=== PATIENT | male | born 1960 | race Caucasian/White ===

== ENCOUNTER 2017-03-23 16:46 | Emergency (ER) | payer MEDICAID ==
[~2017-03-23] VITALS: Ht 175.3 cm; Wt 82.0 kg
[~2017-03-23 16:46] MED LIST: ALPR-475 PO; CLON0.2T; ESCI10TA10; ESCI10TA10 PO; ESCI20TA10 PO; GABA300C10 PO; LORA-446 PO; METO25TA91 PO; QUET200T4 PO; QUET50TA5 PO; TRAZ100T15 PO; TRAZ50TA18 PO
[2017-03-23] MEDS ORDERED: SODIUM CHLORIDE 0.9% 1,000 ML IV ONE (16:59)
[2017-03-23] MEDS ORDERED: THIAMINE 100 MG in SODIUM CHLORIDE 0.9% 50 ML IVPB ONE (17:00)
[2017-03-23] MEDS ORDERED: SODIUM CHLORIDE FLUSH 10ML SYR IVF ONE (17:00)
[2017-03-23] MEDS ORDERED: SODIUM CHLORIDE 0.9% 1,000ML IVBOLUS ONE (17:00)
[2017-03-23] MEDS ORDERED: ONDANSETRON 2MG/ML, 2ML IVPush ONE (17:00)
[2017-03-23] MEDS ORDERED: LORazepam 2 MG/ML, 1ML ONE ×2 (17:00→18:29)
[2017-03-23 17:13] LABS: BASOPHILS # (AUTO) 0.02 x10^3/uL (0-0.1); BASOPHILS % (AUTO) 0 % (0-1); EOSINOPHILS % (AUTO) 0 % (1-7); LYMPHOCYTES # (AUTO) 2.25 x10^3/uL (1-3.4); LYMPHOCYTES % (AUTO) 17 % (22-44); MD NO; MEAN CORPUSCULAR HEMOGLOBIN 29.3 pg (27.5-34.5); MEAN CORPUSCULAR HGB CONC 33.3 g/dL (33.2-36.2); MEAN PLATELET VOLUME 6.7 fL (7.4-10.4); MONOCYTES # (AUTO) 0.51 x10^3/uL (0.2-0.8); MONOCYTES % (AUTO) 4 % (2-9); NEUTROPHILS % (AUTO) 79 % (42-75); PLATELET COUNT 303 x10^3/uL (130-400); RED BLOOD COUNT 6.06 x10^6/uL (4.38-5.82); RED CELL DISTRIBUTION WIDTH 13.6 % (9.4-14.8)
[2017-03-23] MEDS: LORazepam 2 MG/ML, 1ML IVPush PRN ×2 (17:24→18:33)
[2017-03-23 17:28] LABS: ALANINE AMINOTRANSFERASE 32 U/L (12-78); ALBUMIN 4.3 g/dL (3.4-5.0); ANION GAP 16 mmol/L (5-15); CHLORIDE 103 mmol/L (98-107); CREATININE 1.08 mg/dL (0.7-1.3)
[2017-03-23 17:30] LABS: ALKALINE PHOSPHATASE 80 U/L (45-117); BILIRUBIN,TOTAL 0.7 mg/dL (0.2-1.0); TOTAL PROTEIN 8.8 g/dL (6.4-8.2)
[2017-03-23] MEDS ORDERED: PLEASE ENTER HEIGHT AND WEIGHT MC SCH (17:30)
[2017-03-23] MEDS ORDERED: ONDANSETRON 2MG/ML, 2ML ONE (17:33)
[2017-03-23 17:44] VITALS: BP 151/83
== END 2017-03-23 19:18 | disposition home or self-care (01) ==
LOC: ED 19:00
DX: F10.229 Alcohol dependence with intoxication, unspecified (principal); I10 Essential (primary) hypertension; Y90.9 Presence of alcohol in blood, level not specified
CPT/HCPCS: 36415; 80053; 83690; 85025; 96361; 96365; 96375; 99284; J2060; J2405; J3411; J7030

== ENCOUNTER 2017-03-26 15:15 | Emergency (ER) | payer MEDICAID ==
[~2017-03-26] VITALS: Ht 175.3 cm; Wt 81.8 kg
[2017-03-26] MEDS ORDERED: TRAZ100T15 PO (15:26)
[2017-03-26] MEDS ORDERED: ONDANSETRON 2MG/ML, 2ML ONE (15:48)
[2017-03-26] MEDS ORDERED: LORazepam 2 MG/ML, 1ML ONE (15:48)
[2017-03-26] MEDS ORDERED: SODIUM CHLORIDE 0.9% 1,000ML IVBOLUS ONE (16:00)
[2017-03-26] MEDS ORDERED: ONDANSETRON 2MG/ML, 2ML IVPush ONE (16:00)
[2017-03-26] MEDS ORDERED: LORazepam 2 MG/ML, 1ML IVPush ONE (16:00)
[2017-03-26] MEDS ORDERED: DIAZEPAM 5 MG/ML, 10ML VIAL IV ONE (16:30)
[2017-03-26 17:16] VITALS: BP 162/95
== END 2017-03-26 17:54 | disposition home or self-care (01) ==
LOC: ED 17:40
DX: F10.220 Alcohol dependence with intoxication, uncomplicated (principal); F10.239 Alcohol dependence with withdrawal, unspecified; I10 Essential (primary) hypertension
CPT/HCPCS: 96361; 96374; 96375; 99284; J2060; J2405; J3360; J7030

== ENCOUNTER 2017-04-02 05:37 | Emergency (ER) | payer MEDICAID ==
[~2017-04-02] VITALS: Ht 175.3 cm; Wt 82.0 kg
[2017-04-02] MEDS ORDERED: LORazepam 1MG TABLET ONE ×2 (05:57→09:31)
[2017-04-02] MEDS ORDERED: ONDANSETRON ODT 4 MG PO ONE (06:00)
[2017-04-02] MEDS ORDERED: LORazepam 1MG TABLET PO ONE ×2 (06:00→09:30)
[2017-04-02] MEDS ORDERED: ONDANSETRON ODT 4 MG ONE (06:03)
[2017-04-02 06:12] LABS: BASOPHILS # (AUTO) 0.01 x10^3/uL (0-0.1); BASOPHILS % (AUTO) 0 % (0-1); EOSINOPHILS % (AUTO) 0 % (1-7); LYMPHOCYTES # (AUTO) 1.37 x10^3/uL (1-3.4); LYMPHOCYTES % (AUTO) 17 % (22-44); MD NO; MEAN CORPUSCULAR HEMOGLOBIN 29.7 pg (27.5-34.5); MEAN CORPUSCULAR HGB CONC 34.1 g/dL (33.2-36.2); MEAN CORPUSCULAR VOLUME 87.2 fL (81-97); MEAN PLATELET VOLUME 6.4 fL (7.4-10.4); MONOCYTES # (AUTO) 0.58 x10^3/uL (0.2-0.8); MONOCYTES % (AUTO) 7 % (2-9); NEUTROPHILS # (AUTO) 6.07 x10^3/uL (1.8-6.8); NEUTROPHILS % (AUTO) 76 % (42-75); PLATELET COUNT 194 x10^3/uL (130-400); RED BLOOD COUNT 5.75 x10^6/uL (4.38-5.82); RED CELL DISTRIBUTION WIDTH 13.5 % (9.4-14.8)
[2017-04-02 06:24] LABS: ALANINE AMINOTRANSFERASE 59 U/L (12-78); ANION GAP 18 mmol/L (5-15); CALCIUM 8.2 mg/dL (8.5-10.1); CHLORIDE 93 mmol/L (98-107); CREATININE 1.05 mg/dL (0.7-1.3)
[2017-04-02 06:29] LABS: ALKALINE PHOSPHATASE 86 U/L (45-117); TOTAL PROTEIN 8.5 g/dL (6.4-8.2)
[2017-04-02] MEDS ORDERED: CHLORDIAZEPOXIDE 25 MG CAPSULE ONE (08:06)
[2017-04-02] MEDS ORDERED: CHLORDIAZEPOXIDE 25 MG CAPSULE PO ONE (08:30)
[2017-04-02 09:32] VITALS: BP 132/90
== END 2017-04-02 09:49 | disposition home or self-care (01) ==
LOC: ED 05:42
DX: F10.229 Alcohol dependence with intoxication, unspecified (principal); I10 Essential (primary) hypertension
CPT/HCPCS: 36415; 80053; 80307; 85025; 99284; Q0162

== ENCOUNTER 2017-04-04 16:53 | Inpatient (IN) | payer MEDICAID ==
[~2017-04-04] VITALS: Ht 175.3 cm; Wt 80.0 kg
[2017-04-04] MEDS ORDERED: SODIUM CHLORIDE FLUSH 10ML SYR IVF ONE (17:00)
[2017-04-04] MEDS ORDERED: THIAMINE 100 MG in SODIUM CHLORIDE 0.9% 50 ML IVPB ONE (17:00)
[2017-04-04] MEDS ORDERED: SODIUM CHLORIDE 0.9% 1,000 ML IV ONE ×2 (17:00→18:27)
[2017-04-04] MEDS ORDERED: ONDANSETRON 2MG/ML, 2ML IVPush ONE (17:00)
[2017-04-04] MEDS ORDERED: SODIUM CHLORIDE 0.9% 1,000ML IVBOLUS ONE (17:00)
[2017-04-04] MEDS ORDERED: LORazepam 2 MG/ML, 1ML ONE ×2 (17:27→19:25)
[2017-04-04] MEDS ORDERED: ONDANSETRON 2MG/ML, 2ML ONE (17:27)
[2017-04-04] MEDS: LORazepam 2 MG/ML, 1ML IVPush PRN ×3 (17:37→19:23)
[2017-04-04 17:57] LABS: BASOPHILS % (AUTO) 0 % (0-1); EOSINOPHILS % (AUTO) 0 % (1-7); LYMPHOCYTES % (AUTO) 7 % (22-44); MD NO; MEAN CORPUSCULAR HEMOGLOBIN 29.5 pg (27.5-34.5); MEAN CORPUSCULAR HGB CONC 33.7 g/dL (33.2-36.2); MEAN CORPUSCULAR VOLUME 87.4 fL (81-97); MEAN PLATELET VOLUME 6.4 fL (7.4-10.4); MONOCYTES # (AUTO) 0.71 x10^3/uL (0.2-0.8); MONOCYTES % (AUTO) 7 % (2-9); NEUTROPHILS # (AUTO) 8.58 x10^3/uL (1.8-6.8); NEUTROPHILS % (AUTO) 86 % (42-75); PLATELET COUNT 213 x10^3/uL (130-400); RED BLOOD COUNT 5.24 x10^6/uL (4.38-5.82); RED CELL DISTRIBUTION WIDTH 13.4 % (9.4-14.8)
[2017-04-04] MEDS ORDERED: THIAMINE 100MG TABLET PO ONE (18:00)
[2017-04-04 18:06] LABS: ALANINE AMINOTRANSFERASE 118 U/L (12-78); ALBUMIN 3.9 g/dL (3.4-5.0); ANION GAP 14 mmol/L (5-15); CHLORIDE 90 mmol/L (98-107); CREATININE 1.04 mg/dL (0.7-1.3)
[2017-04-04 18:08] LABS: ALKALINE PHOSPHATASE 82 U/L (45-117); BILIRUBIN,TOTAL 1.2 mg/dL (0.2-1.0); TOTAL PROTEIN 7.8 g/dL (6.4-8.2)
[2017-04-04] MEDS ORDERED: SODIUM CHLORIDE FLUSH 10ML SYR IVF PRN (18:30)
[2017-04-04] MEDS ORDERED: POTASSIUM CHLORIDE 20 MEQ, MAGNESIUM SULFATE 2 GM, MVI ADULT 10 ML, FOLIC ACID 1 MG in ... IV SCH (19:18)
[2017-04-04] MEDS ORDERED: LABETALOL 5MG/ML, 20ML IVPush PRN (19:30)
[2017-04-04] MEDS ORDERED: ONDANSETRON ODT 4 MG PO PRN (19:30)
[2017-04-04] MEDS ORDERED: LORazepam 1MG TABLET PO PRN (19:30)
[2017-04-04] MEDS ORDERED: ONDANSETRON 2MG/ML, 2ML IVPush PRN (19:30)
[2017-04-04] MEDS ORDERED: morphine SULFATE 10 MG/ML, 1ML IVPush PRN (19:30)
[2017-04-04] MEDS ORDERED: TEMAZEPAM 15 MG CAPSULE PO PRN (19:30)
[2017-04-04] MEDS ORDERED: ACETAMINOPHEN 325 MG TABLET PO PRN (19:30)
[2017-04-04 20:00] VITALS: BP 127/79
[2017-04-04] MEDS: TRAZODONE 100MG TABLET PO SCH (20:14)
[2017-04-04] MEDS: QUETIAPINE 25MG TABLET PO SCH (20:19)
[2017-04-04] MEDS: THIAMINE 100MG TABLET PO SCH (20:19)
[2017-04-04] MEDS ORDERED: QUETIAPINE FUMARATE 50 MG PO SCH (21:00)
[2017-04-04] MEDS: FAMOTIDINE 20 MG/2 ML IVPush SCH (21:36)
[2017-04-04] MEDS: HEPARIN 5,000 UNITS/ML, 1ML SQ SCH (21:36)
[2017-04-05] MEDS: LORazepam 2 MG/ML, 1ML IVPush PRN ×2 (00:12→05:28)
[2017-04-05 03:18] VITALS: BP 137/86
[2017-04-05] MEDS: HEPARIN 5,000 UNITS/ML, 1ML SQ SCH (05:27)
[2017-04-05 05:47] LABS: CHLORIDE 99 mmol/L (98-107)
[2017-04-05 05:59] LABS: ANION GAP 12 mmol/L (5-15); CALCIUM 7.5 mg/dL (8.5-10.1)
[2017-04-05 06:00] LABS: ALANINE AMINOTRANSFERASE 111 U/L (12-78); ALBUMIN 3.2 g/dL (3.4-5.0); ALKALINE PHOSPHATASE 66 U/L (45-117); BILIRUBIN,TOTAL 1.3 mg/dL (0.2-1.0); CHOL/HDL RATIO 3.4; CHOLESTEROL, TOTAL 238 mg/dL (140-239); HDL CHOL % 30 % (26-37); HDL CHOLESTEROL (DIRECT) 71 mg/dL (40-60); LDL CHOLESTEROL,CALCULATED 146 mg/dL (54-169); LDL/HDL RATIO 2.1 (0.5-3.0); TOTAL PROTEIN 6.6 g/dL (6.4-8.2); TRIGLYCERIDES 107 mg/dL (50-200); VLDL CHOLESTEROL 21 mg/dL (0-25)
[2017-04-05 06:01] LABS: BASOPHILS # (AUTO) 0.05 x10^3/uL (0-0.1); BASOPHILS % (AUTO) 1 % (0-1); EOSINOPHILS % (AUTO) 0 % (1-7); LYMPHOCYTES # (AUTO) 1.15 x10^3/uL (1-3.4); LYMPHOCYTES % (AUTO) 12 % (22-44); MD NO; MEAN CORPUSCULAR HEMOGLOBIN 29.9 pg (27.5-34.5); MEAN CORPUSCULAR HGB CONC 33.8 g/dL (33.2-36.2); MEAN CORPUSCULAR VOLUME 88.3 fL (81-97); MEAN PLATELET VOLUME 6.7 fL (7.4-10.4); MONOCYTES # (AUTO) 0.89 x10^3/uL (0.2-0.8); MONOCYTES % (AUTO) 10 % (2-9); NEUTROPHILS # (AUTO) 7.24 x10^3/uL (1.8-6.8); NEUTROPHILS % (AUTO) 78 % (42-75); PLATELET COUNT 150 x10^3/uL (130-400); RED BLOOD COUNT 4.56 x10^6/uL (4.38-5.82); RED CELL DISTRIBUTION WIDTH 13.6 % (9.4-14.8)
[2017-04-05 07:40] VITALS: BP 151/87
[2017-04-05] MEDS ORDERED: ONDANSETRON 2MG/ML, 2ML IVPush PRN (08:00)
[2017-04-05] MEDS ORDERED: FOLIC ACID 1 MG TABLET PO ONE (08:00)
[2017-04-05] MEDS ORDERED: CHLORDIAZEPOXIDE 25 MG CAPSULE PO PRN (08:00)
[2017-04-05] MEDS ORDERED: LORazepam 2 MG/ML, 1ML IV PRN (08:00)
[2017-04-05] MEDS ORDERED: METOPROLOL SUCCINATE 25 MG TAB.ER.24H PO SCH (09:00)
[2017-04-05] MEDS: METOPROLOL SUCCINATE 25 MG TAB.ER.24H PO SCH (09:00)
[2017-04-05] MEDS: FAMOTIDINE 20 MG/2 ML IVPush SCH ×2 (09:51→20:11)
[2017-04-05] MEDS: MAGNESIUM CHLORIDE 64 MG TABLET.DR PO SCH ×3 (09:51→21:36)
[2017-04-05] MEDS: CHLORDIAZEPOXIDE 25 MG CAPSULE PO PRN ×3 (09:57→14:27)
[2017-04-05 11:56] VITALS: BP 152/87
[2017-04-05 16:24] VITALS: BP 145/86
[2017-04-05 18:06] VITALS: BP 148/89
[2017-04-05 18:39] VITALS: BP 139/84
[2017-04-05] MEDS: CHLORDIAZEPOXIDE 10 MG CAPSULE PO PRN (20:11)
[2017-04-05] MEDS: QUETIAPINE 25MG TABLET PO SCH (21:36)
[2017-04-05] MEDS: TRAZODONE 100MG TABLET PO SCH (21:36)
[2017-04-05] MEDS: THIAMINE 100MG TABLET PO SCH (21:39)
[2017-04-06 01:29] VITALS: BP 128/75
[2017-04-06] MEDS: CHLORDIAZEPOXIDE 10 MG CAPSULE PO PRN ×2 (01:59→06:54)
[2017-04-06 07:16] VITALS: BP 105/61
[2017-04-06 08:00] LABS: CALCIUM 7.8 mg/dL (8.5-10.1); CHLORIDE 98 mmol/L (98-107); CREATININE 1.15 mg/dL (0.7-1.3)
[2017-04-06] MEDS ORDERED: ENOXAPARIN 40 MG/0.4 ML SQ SCH (08:00)
[2017-04-06 08:11] LABS: ANION GAP 9 mmol/L (5-15)
[2017-04-06] MEDS: MAGNESIUM CHLORIDE 64 MG TABLET.DR PO SCH ×3 (08:54→20:46)
[2017-04-06] MEDS: METOPROLOL SUCCINATE 25 MG TAB.ER.24H PO SCH (08:54)
[2017-04-06] MEDS: FAMOTIDINE 20 MG/2 ML IVPush SCH ×2 (08:54→20:47)
[2017-04-06] MEDS ORDERED: POTASSIUM CHLORIDE 20 MEQ TAB.ER.PRT PO ONE (11:00)
[2017-04-06] MEDS: CHLORDIAZEPOXIDE 25 MG CAPSULE PO PRN ×3 (11:38→20:53)
[2017-04-06 13:50] VITALS: BP 118/70
[2017-04-06 19:23] VITALS: BP 148/83
[2017-04-06] MEDS: THIAMINE 100MG TABLET PO SCH (20:47)
[2017-04-06] MEDS: QUETIAPINE 25MG TABLET PO SCH (20:47)
[2017-04-06] MEDS: TRAZODONE 100MG TABLET PO SCH (20:47)
[2017-04-07 02:15] VITALS: BP 128/83
[2017-04-07] MEDS: CHLORDIAZEPOXIDE 25 MG CAPSULE PO PRN (06:15)
== END 2017-04-07 06:55 | disposition left against medical advice (07) | DRG 432 ==
LOC: ED 18:23 → EDIP 18:27 → 3NE 20:12
PROVIDERS: ADMIT Internal Medicine; ATTEND Internal Medicine
DX: K70.10 Alcoholic hepatitis without ascites (principal); K85.20 Alcohol induced acute pancreatitis without necrosis or infection; F10.239 Alcohol dependence with withdrawal, unspecified; E87.1 Hypo-osmolality and hyponatremia; K76.0 Fatty (change of) liver, not elsewhere classified; I10 Essential (primary) hypertension; K29.20 Alcoholic gastritis without bleeding; F41.9 Anxiety disorder, unspecified; F32.9 Major depressive disorder, single episode, unspecified; Z53.21 Procedure and treatment not carried out due to patient leaving prior to being seen by health care provider
CPT/HCPCS: 36415; 74150; 76700; 80048; 80053; 80061; 83690; 83735; 84100; 85025; 96374; 96375; 96376; J1644; J1650; J2405; J3475; J3480; J7042; J2060; J2270; J7030; S0028

== ENCOUNTER 2017-04-18 10:41 | Emergency (ER) | payer MEDICAID ==
[~2017-04-18] VITALS: Ht 175.3 cm; Wt 80.0 kg
[~2017-04-18 10:41] MED LIST changes: +DOXY50CA42 PO
[2017-04-18] MEDS ORDERED: CHLORDIAZEPOXIDE 25 MG CAPSULE PO PRN ×2 (11:00→12:30)
[2017-04-18] MEDS ORDERED: SODIUM CHLORIDE 0.9% 1,000ML IVBOLUS ONE (11:00)
[2017-04-18] MEDS ORDERED: PLEASE ENTER HEIGHT AND WEIGHT MC SCH (11:00)
[2017-04-18] MEDS ORDERED: SODIUM CHLORIDE FLUSH 10ML SYR IVF ONE (11:00)
[2017-04-18] MEDS ORDERED: CHLORDIAZEPOXIDE 25 MG CAPSULE ONE ×2 (11:02→12:21)
[2017-04-18] MEDS ORDERED: BACITRACIN ZINC OINT 500U/GM, 0.9 GM ONE (12:45)
[2017-04-18 12:59] VITALS: BP 151/91
== END 2017-04-18 13:02 | disposition home or self-care (01) ==
LOC: ED 11:14
DX: F10.239 Alcohol dependence with withdrawal, unspecified (principal)
CPT/HCPCS: 70450; 72125; 96360; 96361; 99285; J7030

== ENCOUNTER 2017-04-19 13:14 | Inpatient (IN) | payer MEDICAID ==
[~2017-04-19] VITALS: Ht 182.9 cm; Wt 78.9 kg
[2017-04-19] MEDS ORDERED: LORazepam 2 MG/ML, 1ML ONE ×8 (13:50→23:26)
[2017-04-19] MEDS ORDERED: SODIUM CHLORIDE 0.9% 1,000ML IVBOLUS ONE (14:00)
[2017-04-19] MEDS ORDERED: THIAMINE 100MG TABLET PO ONE (14:00)
[2017-04-19 14:31] LABS: ALBUMIN 3.1 g/dL (3.4-5.0); ANION GAP 9 mmol/L (5-15); CALCIUM 7.3 mg/dL (8.5-10.1); CHLORIDE 99 mmol/L (98-107)
[2017-04-19 14:32] LABS: CREATININE 0.89 mg/dL (0.7-1.3)
[2017-04-19 14:51] LABS: ALBUMIN 3.1 g/dL (3.4-5.0); BILIRUBIN, DIRECT 0.3 mg/dL (0.1-0.2)
[2017-04-19 14:53] LABS: BILIRUBIN,TOTAL 1.3 mg/dL (0.2-1.0); TOTAL PROTEIN 6.8 g/dL (6.4-8.2)
[2017-04-19] MEDS: LORazepam 2 MG/ML, 1ML IVPush PRN ×8 (15:00→21:16)
[2017-04-19] MEDS ORDERED: POTASSIUM CHLORIDE 20 MEQ TAB.ER.PRT PO ONE (15:00)
[2017-04-19] MEDS ORDERED: POTASSIUM CHLORIDE 20 MEQ TAB.ER.PRT ONE (15:00)
[2017-04-19 15:09] LABS: MD YES; MEAN CORPUSCULAR HEMOGLOBIN 30.9 pg (27.5-34.5); MEAN CORPUSCULAR HGB CONC 34.2 g/dL (33.2-36.2); MEAN CORPUSCULAR VOLUME 90.3 fL (81-97); PLATELET COUNT 126 x10^3/uL (130-400); RED BLOOD COUNT 3.39 x10^6/uL (4.38-5.82); RED CELL DISTRIBUTION WIDTH 17.6 % (9.4-14.8)
[2017-04-19] MEDS ORDERED: THIAMINE 100MG TABLET ONE (15:09)
[2017-04-19 15:14] LABS: ANISOCYTOSIS 1+; BANDS%(MANUAL) 3 % (0-7); HYPOCHROMIA 1+; LYMPH#(MANUAL) 0.41 x10^3/uL (1-3.4); LYMPHS% (MANUAL) 6 % (22-44); MONOS#(MANUAL) 0.34 x10^3/uL (0.3-2.7); MONOS% (MANUAL) 5 % (2-9); POLYCHROMASIA 1+; SEG#(MANUAL) 5.85 x10^3/uL (1.8-6.8); SEGS% (MANUAL) 86 % (42-75)
[2017-04-19 15:15] LABS: <PLATELET ESTIMATE> ADEQUATE; <PLT MORPHOLOGY> NORMAL PLT MORPH
[2017-04-19] MEDS ORDERED: MAGNESIUM SULFATE 1 GM, FOLIC ACID 1 MG, MVI ADULT 10 ML in SODIUM CHLORIDE 0.9% 1,000 ML IV ONE (17:00)
[2017-04-19] MEDS ORDERED: SODIUM CHLORIDE 0.9%, 500ML IVBOLUS ONE (17:00)
[2017-04-19] MEDS ORDERED: DIAZEPAM 5 MG/ML, 2ML IVPush ONE (17:00)
[2017-04-19] MEDS ORDERED: OMNIPAQUE 350 MG/ML, 100ML BOTTLE ONE (17:25)
[2017-04-19] MEDS ORDERED: BEER 12 OZ CAN PO ONE (18:00)
[2017-04-19] MEDS ORDERED: POTASSIUM CHLORIDE 10 MEQ, MVI ADULT 10 ML, FOLIC ACID 1 MG, MAGNESIUM SULFATE 1 GM in ... IV SCH (19:29)
[2017-04-19] MEDS ORDERED: CHLORDIAZEPOXIDE 25 MG CAPSULE PO PRN ×3 (19:30)
[2017-04-19] MEDS ORDERED: PROMETHAZINE 25MG TABLET PO PRN (19:30)
[2017-04-19] MEDS ORDERED: ACETAMINOPHEN 325 MG TABLET PO PRN (19:30)
[2017-04-19] MEDS ORDERED: CHLORDIAZEPOXIDE 10 MG CAPSULE PO PRN (19:30)
[2017-04-19] MEDS ORDERED: CHLORDIAZEPOXIDE 25 MG CAPSULE ONE (20:10)
[2017-04-19] MEDS ORDERED: MAGNESIUM CHLORIDE 64 MG TABLET.DR PO SCH (21:00)
[2017-04-19] MEDS ORDERED: MORPHINE SULFATE 4 MG/ML, 1ML ONE (21:50)
[2017-04-19] MEDS: morphine SULFATE 10 MG/ML, 1ML IVPush PRN (21:54)
[2017-04-19] MEDS ORDERED: POTASSIUM CHLORIDE 20 MEQ, MAGNESIUM SULFATE 2 GM, MVI ADULT 10 ML, FOLIC ACID 1 MG in ... IV SCH (21:56)
[2017-04-19] MEDS ORDERED: LORazepam 1MG TABLET PO PRN ×3 (22:00→22:30)
[2017-04-19] MEDS ORDERED: ENALAPRILAT 1.25 MG/ML, 2ML IVPush PRN (22:00)
[2017-04-19] MEDS ORDERED: CALCIUM GLUCONATE 9.2 MEQ in SODIUM CHLORIDE 0.9% 100 ML IV ONE (22:00)
[2017-04-19] MEDS ORDERED: LABETALOL 5MG/ML, 20ML IVPush PRN (22:00)
[2017-04-19] MEDS ORDERED: LORazepam 2 MG/ML, 1ML IV PRN ×6 (22:00→22:30)
[2017-04-19] MEDS ORDERED: BISACODYL 10 MG SUPP PR PRN (22:00)
[2017-04-19] MEDS ORDERED: POLYETHYLENE GLYCOL 17 GM PACKET PO PRN (22:00)
[2017-04-19] MEDS ORDERED: hydrALAzine 20 MG/ML, 1ML IVPush PRN (22:00)
[2017-04-19] MEDS ORDERED: PANTOPRAZOLE 40 MG IV IVPush SCH (22:00)
[2017-04-19] MEDS ORDERED: PROMETHAZINE 25 MG/ML, 1ML IM PRN (22:00)
[2017-04-19] MEDS ORDERED: ONDANSETRON 2MG/ML, 2ML IVPush PRN (22:00)
[2017-04-19] MEDS ORDERED: LORazepam 0.5MG TABLET PO PRN (22:30)
[2017-04-19] MEDS: CHLORDIAZEPOXIDE 25 MG CAPSULE PO SCH (22:30)
[2017-04-19] MEDS: SODIUM CHLORIDE 0.9% 1,000 ML IV SCH (22:45)
[2017-04-19] MEDS: LORazepam 2 MG/ML, 1ML IV PRN ×2 (22:45→23:30)
[2017-04-19 22:54] LABS: FREE T4 (FREE THYROXINE) 0.75 ng/dL (0.76-1.46); THYROID STIMULATING HORMONE 2.41 mIU/L (0.358-3.740)
[2017-04-19] MEDS: THIAMINE 100MG TABLET PO SCH (22:57)
[2017-04-19] MEDS ORDERED: HEPARIN 5,000 UNITS/ML, 1ML ONE (23:10)
[2017-04-19] MEDS ORDERED: PANTOPRAZOLE 40 MG IV ONE (23:10)
[2017-04-19 23:13] LABS: HEMOGLOBIN A1C 5.3 % (4.2-6.3)
[2017-04-19] MEDS: HEPARIN 5,000 UNITS/ML, 1ML SQ SCH (23:18)
[2017-04-19 23:31] LABS: TROPONIN I 0.019 ng/mL (0.000-0.045)
[2017-04-19 23:50] LABS: MICROSCOPIC AUTO
[2017-04-19 23:51] LABS: CULTURE INDICATED? YES
[2017-04-20] MEDS ORDERED: LORazepam 2 MG/ML, 1ML ONE ×9 (00:17→07:57)
[2017-04-20] MEDS: LORazepam 2 MG/ML, 1ML IV PRN ×10 (00:22→22:26)
[2017-04-20] MEDS ORDERED: MORPHINE SULFATE 4 MG/ML, 1ML ONE ×2 (00:53→04:00)
[2017-04-20] MEDS: morphine SULFATE 10 MG/ML, 1ML IVPush PRN ×2 (00:56→04:02)
[2017-04-20] MEDS ORDERED: CHLORDIAZEPOXIDE 25 MG CAPSULE ONE ×2 (04:29→08:20)
[2017-04-20] MEDS: CHLORDIAZEPOXIDE 25 MG CAPSULE PO SCH ×4 (04:33→21:15)
[2017-04-20 05:30] LABS: ANION GAP 7 mmol/L (5-15); CHLORIDE 100 mmol/L (98-107)
[2017-04-20 05:32] LABS: TROPONIN I 0.025 ng/mL (0.000-0.045)
[2017-04-20 05:34] LABS: ALANINE AMINOTRANSFERASE 202 U/L (12-78); ALKALINE PHOSPHATASE 80 U/L (45-117); BILIRUBIN,TOTAL 1.8 mg/dL (0.2-1.0); CHOL/HDL RATIO 2.6; CHOLESTEROL, TOTAL 249 mg/dL (140-239); CREATININE 0.84 mg/dL (0.7-1.3); HDL CHOL % 39 % (26-37); HDL CHOLESTEROL (DIRECT) 97 mg/dL (40-60); LDL CHOLESTEROL,CALCULATED 131 mg/dL (54-169); LDL/HDL RATIO 1.4 (0.5-3.0); TOTAL PROTEIN 6.3 g/dL (6.4-8.2); TRIGLYCERIDES 103 mg/dL (50-200); VLDL CHOLESTEROL 21 mg/dL (0-25)
[2017-04-20 06:05] LABS: MEAN CORPUSCULAR HEMOGLOBIN 31.1 pg (27.5-34.5); MEAN CORPUSCULAR HGB CONC 34.6 g/dL (33.2-36.2); MEAN CORPUSCULAR VOLUME 90.1 fL (81-97); MEAN PLATELET VOLUME 6.5 fL (7.4-10.4); PLATELET COUNT 121 x10^3/uL (130-400); RED BLOOD COUNT 3.29 x10^6/uL (4.38-5.82); RED CELL DISTRIBUTION WIDTH 18.1 % (9.4-14.8)
[2017-04-20 06:06] LABS: BASOPHILS # (AUTO) 0.03 x10^3/uL (0-0.1); BASOPHILS % (AUTO) 1 % (0-1); EOSINOPHILS % (AUTO) 0 % (1-7); LYMPHOCYTES # (AUTO) 0.76 x10^3/uL (1-3.4); LYMPHOCYTES % (AUTO) 12 % (22-44); MD SCAN; MONOCYTES # (AUTO) 0.26 x10^3/uL (0.2-0.8); MONOCYTES % (AUTO) 4 % (2-9); NEUTROPHILS # (AUTO) 5.13 x10^3/uL (1.8-6.8); NEUTROPHILS % (AUTO) 83 % (42-75)
[2017-04-20] MEDS ORDERED: HEPARIN 5,000 UNITS/ML, 1ML ONE (06:25)
[2017-04-20] MEDS: SODIUM CHLORIDE 0.9% 1,000 ML IV SCH (06:31)
[2017-04-20] MEDS: HEPARIN 5,000 UNITS/ML, 1ML SQ SCH ×3 (06:31→21:15)
[2017-04-20] MEDS ORDERED: ONDANSETRON 2MG/ML, 2ML IVPush PRN (07:30)
[2017-04-20] MEDS ORDERED: METOPROLOL TARTRATE 25 MG TABLET ONE (08:19)
[2017-04-20] MEDS ORDERED: OXYcodone IR 5MG TABLET ONE (08:20)
[2017-04-20] MEDS: METOPROLOL TARTRATE 25 MG TABLET PO SCH ×2 (08:22→15:47)
[2017-04-20] MEDS ORDERED: SENNA/DOCUSATE TABLET ONE (08:23)
[2017-04-20] MEDS: OXYcodone IR 5MG TABLET PO PRN ×2 (08:23→19:38)
[2017-04-20] MEDS: SENNA/DOCUSATE TABLET PO SCH (08:24)
[2017-04-20] MEDS: THIAMINE 100MG TABLET PO SCH (09:00)
[2017-04-20] MEDS ORDERED: MULTIVITAMINS/MINERALS TABLET PO SCH (09:00)
[2017-04-20] MEDS: POTASSIUM CHLORIDE 40 MEQ in D5%-LACTATED RINGERS 1,000 ML IV SCH (11:50)
[2017-04-20] MEDS: ACETAMINOPHEN 325 MG TABLET PO PRN ×2 (14:17→22:27)
[2017-04-20 17:27] VITALS: BP 135/85
[2017-04-20] MEDS: LORazepam 2 MG/ML, 1ML IVPush SCH (19:37)
[2017-04-20] MEDS: DIPHENHYDRAMINE 50 MG/ML, 1ML IVPush SCH (21:15)
[2017-04-21] MEDS: OXYcodone IR 5MG TABLET PO PRN ×5 (00:12→21:09)
[2017-04-21] MEDS: LORazepam 2 MG/ML, 1ML IV PRN ×9 (00:12→23:09)
[2017-04-21] MEDS: METOPROLOL TARTRATE 25 MG TABLET PO SCH ×3 (00:12→16:16)
[2017-04-21] MEDS: POTASSIUM CHLORIDE 40 MEQ in D5%-LACTATED RINGERS 1,000 ML IV SCH ×2 (02:03→18:41)
[2017-04-21 04:24] LABS: BASOPHILS # (AUTO) 0.02 x10^3/uL (0-0.1); BASOPHILS % (AUTO) 0 % (0-1); EOSINOPHILS # (AUTO) 0.04 x10^3/uL (0-0.4); EOSINOPHILS % (AUTO) 1 % (1-7); LYMPHOCYTES # (AUTO) 0.91 x10^3/uL (1-3.4); LYMPHOCYTES % (AUTO) 19 % (22-44); MD NO; MEAN CORPUSCULAR HEMOGLOBIN 31.8 pg (27.5-34.5); MEAN CORPUSCULAR HGB CONC 34.4 g/dL (33.2-36.2); MEAN CORPUSCULAR VOLUME 92.3 fL (81-97); MEAN PLATELET VOLUME 7.3 fL (7.4-10.4); MONOCYTES # (AUTO) 0.22 x10^3/uL (0.2-0.8); MONOCYTES % (AUTO) 5 % (2-9); NEUTROPHILS # (AUTO) 3.59 x10^3/uL (1.8-6.8); NEUTROPHILS % (AUTO) 75 % (42-75); PLATELET COUNT 109 x10^3/uL (130-400); RED BLOOD COUNT 3.27 x10^6/uL (4.38-5.82); RED CELL DISTRIBUTION WIDTH 18.4 % (9.4-14.8)
[2017-04-21 04:33] LABS: ALANINE AMINOTRANSFERASE 162 U/L (12-78); ALBUMIN 2.8 g/dL (3.4-5.0); ANION GAP 5 mmol/L (5-15); CALCIUM 7.5 mg/dL (8.5-10.1); CHLORIDE 100 mmol/L (98-107); CREATININE 0.84 mg/dL (0.7-1.3)
[2017-04-21 04:35] LABS: ALKALINE PHOSPHATASE 77 U/L (45-117); BILIRUBIN,TOTAL 1.3 mg/dL (0.2-1.0); TOTAL PROTEIN 6.3 g/dL (6.4-8.2)
[2017-04-21] MEDS: HEPARIN 5,000 UNITS/ML, 1ML SQ SCH ×3 (05:33→21:02)
[2017-04-21] MEDS: THIAMINE 100MG TABLET PO SCH (07:56)
[2017-04-21] MEDS: SENNA/DOCUSATE TABLET PO SCH (07:56)
[2017-04-21] MEDS: CHLORDIAZEPOXIDE 25 MG CAPSULE PO SCH ×3 (07:57→21:02)
[2017-04-21] MEDS: LORazepam 1MG TABLET PO PRN ×2 (17:57→21:10)
[2017-04-21] MEDS: DIPHENHYDRAMINE 50 MG/ML, 1ML IVPush SCH (21:02)
[2017-04-21] MEDS: LORazepam 2 MG/ML, 1ML IVPush SCH (21:02)
[2017-04-22] MEDS: METOPROLOL TARTRATE 25 MG TABLET PO SCH ×3 (00:15→17:24)
[2017-04-22] MEDS: LORazepam 1MG TABLET PO PRN ×5 (01:07→15:34)
[2017-04-22] MEDS: OXYcodone IR 5MG TABLET PO PRN ×2 (03:08→11:44)
[2017-04-22 04:34] LABS: MEAN CORPUSCULAR HEMOGLOBIN 32.4 pg (27.5-34.5); MEAN CORPUSCULAR HGB CONC 35.1 g/dL (33.2-36.2); MEAN CORPUSCULAR VOLUME 92.3 fL (81-97); PLATELET COUNT 140 x10^3/uL (130-400); RED BLOOD COUNT 3.21 x10^6/uL (4.38-5.82); RED CELL DISTRIBUTION WIDTH 18.8 % (9.4-14.8)
[2017-04-22 04:39] LABS: CHLORIDE 104 mmol/L (98-107)
[2017-04-22 04:46] LABS: ALANINE AMINOTRANSFERASE 131 U/L (12-78); ALBUMIN 2.7 g/dL (3.4-5.0); ALKALINE PHOSPHATASE 76 U/L (45-117); ANION GAP 7 mmol/L (5-15); BILIRUBIN,TOTAL 1.1 mg/dL (0.2-1.0); CALCIUM 8.1 mg/dL (8.5-10.1); CREATININE 0.91 mg/dL (0.7-1.3); TOTAL PROTEIN 6.1 g/dL (6.4-8.2)
[2017-04-22 05:36] LABS: BASOPHILS # (AUTO) 0.02 x10^3/uL (0-0.1); BASOPHILS % (AUTO) 0 % (0-1); EOSINOPHILS # (AUTO) 0.06 x10^3/uL (0-0.4); EOSINOPHILS % (AUTO) 1 % (1-7); LYMPHOCYTES # (AUTO) 1.24 x10^3/uL (1-3.4); LYMPHOCYTES % (AUTO) 25 % (22-44); MD SCAN; MONOCYTES % (AUTO) 6 % (2-9); NEUTROPHILS # (AUTO) 3.45 x10^3/uL (1.8-6.8); NEUTROPHILS % (AUTO) 68 % (42-75)
[2017-04-22] MEDS: HEPARIN 5,000 UNITS/ML, 1ML SQ SCH ×3 (06:15→21:27)
[2017-04-22] MEDS: THIAMINE 100MG TABLET PO SCH (08:52)
[2017-04-22] MEDS: SENNA/DOCUSATE TABLET PO SCH (08:52)
[2017-04-22] MEDS: CHLORDIAZEPOXIDE 25 MG CAPSULE PO SCH ×3 (08:52→21:31)
[2017-04-22] MEDS: FOLIC ACID 1 MG TABLET PO SCH (08:52)
[2017-04-22] MEDS: ACETAMINOPHEN 325 MG TABLET PO PRN ×2 (10:17→22:09)
[2017-04-22 13:19] VITALS: BP 136/81
[2017-04-22 18:55] VITALS: BP 129/81
[2017-04-22] MEDS: DIPHENHYDRAMINE 50 MG/ML, 1ML IVPush SCH (21:26)
[2017-04-22] MEDS: LORazepam 2 MG/ML, 1ML IVPush SCH (21:27)
[2017-04-23 01:22] VITALS: BP 127/83
[2017-04-23] MEDS: METOPROLOL TARTRATE 25 MG TABLET PO SCH ×3 (01:25→17:32)
[2017-04-23 05:18] LABS: ALBUMIN 3.1 g/dL (3.4-5.0); ANION GAP 7 mmol/L (5-15); CALCIUM 8.7 mg/dL (8.5-10.1); CHLORIDE 104 mmol/L (98-107)
[2017-04-23 05:19] LABS: MEAN CORPUSCULAR HEMOGLOBIN 31.6 pg (27.5-34.5); MEAN CORPUSCULAR HGB CONC 34.1 g/dL (33.2-36.2); MEAN CORPUSCULAR VOLUME 92.7 fL (81-97); MEAN PLATELET VOLUME 6.9 fL (7.4-10.4); PLATELET COUNT 177 x10^3/uL (130-400); RED BLOOD COUNT 3.76 x10^6/uL (4.38-5.82); RED CELL DISTRIBUTION WIDTH 20.9 % (9.4-14.8)
[2017-04-23 05:23] LABS: ALANINE AMINOTRANSFERASE 130 U/L (12-78); ALKALINE PHOSPHATASE 90 U/L (45-117); CREATININE 1.06 mg/dL (0.7-1.3); TOTAL PROTEIN 7.1 g/dL (6.4-8.2)
[2017-04-23 05:55] LABS: BASOPHILS # (AUTO) 0.02 x10^3/uL (0-0.1); BASOPHILS % (AUTO) 0 % (0-1); EOSINOPHILS # (AUTO) 0.08 x10^3/uL (0-0.4); EOSINOPHILS % (AUTO) 2 % (1-7); LYMPHOCYTES # (AUTO) 1.38 x10^3/uL (1-3.4); LYMPHOCYTES % (AUTO) 31 % (22-44); MD SCAN; MONOCYTES # (AUTO) 0.41 x10^3/uL (0.2-0.8); MONOCYTES % (AUTO) 9 % (2-9); NEUTROPHILS # (AUTO) 2.61 x10^3/uL (1.8-6.8); NEUTROPHILS % (AUTO) 58 % (42-75)
[2017-04-23] MEDS: HEPARIN 5,000 UNITS/ML, 1ML SQ SCH ×3 (06:17→22:12)
[2017-04-23 08:01] VITALS: BP 137/85
[2017-04-23] MEDS: FOLIC ACID 1 MG TABLET PO SCH (09:55)
[2017-04-23] MEDS: SENNA/DOCUSATE TABLET PO SCH (09:56)
[2017-04-23] MEDS: THIAMINE 100MG TABLET PO SCH (09:58)
[2017-04-23] MEDS: CHLORDIAZEPOXIDE 25 MG CAPSULE PO SCH ×2 (09:58→16:20)
[2017-04-23] MEDS: OXYcodone IR 5MG TABLET PO PRN ×3 (09:59→23:05)
[2017-04-23 14:30] VITALS: BP_SYST 128; BP_SYST 158; BP_DIAS 64; BP_DIAS 79
[2017-04-23 18:44] LABS: TROPONIN I < 0.015 ng/mL (0.000-0.045)
[2017-04-23 18:45] VITALS: BP 143/90
[2017-04-23] MEDS: LORazepam 2 MG/ML, 1ML IVPush SCH (20:34)
[2017-04-23] MEDS: DIPHENHYDRAMINE 50 MG/ML, 1ML IVPush SCH (20:34)
[2017-04-24 00:46] VITALS: BP 129/85
[2017-04-24 01:32] VITALS: BP 121/83
[2017-04-24] MEDS: METOPROLOL TARTRATE 25 MG TABLET PO SCH ×3 (01:33→17:54)
[2017-04-24] MEDS: OXYcodone IR 5MG TABLET PO PRN ×4 (03:11→23:40)
[2017-04-24 05:02] LABS: ALANINE AMINOTRANSFERASE 113 U/L (12-78); ALBUMIN 3.3 g/dL (3.4-5.0); ANION GAP 7 mmol/L (5-15); CALCIUM 8.4 mg/dL (8.5-10.1); CHLORIDE 102 mmol/L (98-107)
[2017-04-24 05:05] LABS: ALKALINE PHOSPHATASE 89 U/L (45-117); CREATININE 1.14 mg/dL (0.7-1.3); TOTAL PROTEIN 7.2 g/dL (6.4-8.2)
[2017-04-24] MEDS: HEPARIN 5,000 UNITS/ML, 1ML SQ SCH ×3 (05:44→23:41)
[2017-04-24 07:28] VITALS: BP 133/82
[2017-04-24] MEDS: LORazepam 2 MG/ML, 1ML IVPush PRN ×2 (08:26→15:51)
[2017-04-24] MEDS: SENNA/DOCUSATE TABLET PO SCH (08:26)
[2017-04-24] MEDS: FOLIC ACID 1 MG TABLET PO SCH (08:26)
[2017-04-24] MEDS: THIAMINE 100MG TABLET PO SCH (08:27)
[2017-04-24 14:30] VITALS: BP 130/78
[2017-04-24 15:50] VITALS: BP 116/80
[2017-04-24 19:53] VITALS: BP 134/90
[2017-04-24] MEDS: DIPHENHYDRAMINE 50 MG/ML, 1ML IVPush SCH (21:01)
[2017-04-24] MEDS: QUETIAPINE 25MG TABLET PO SCH (21:02)
[2017-04-24] MEDS: TRAZODONE 100MG TABLET PO SCH (21:02)
[2017-04-25 01:37] VITALS: BP 116/76
[2017-04-25] MEDS: METOPROLOL TARTRATE 25 MG TABLET PO SCH ×3 (01:47→17:30)
[2017-04-25] MEDS: ACETAMINOPHEN 325 MG TABLET PO PRN ×2 (05:43→21:42)
[2017-04-25 07:21] VITALS: BP 95/61
[2017-04-25] MEDS: THIAMINE 100MG TABLET PO SCH (07:53)
[2017-04-25] MEDS: FOLIC ACID 1 MG TABLET PO SCH (07:53)
[2017-04-25] MEDS: HEPARIN 5,000 UNITS/ML, 1ML SQ SCH ×2 (07:53→16:00)
[2017-04-25] MEDS: SENNA/DOCUSATE TABLET PO SCH (07:53)
[2017-04-25] MEDS ORDERED: CITALOPRAM 20 MG TABLET PO SCH (09:00)
[2017-04-25] MEDS: OXYcodone IR 5MG TABLET PO PRN ×2 (10:39→17:46)
[2017-04-25 14:40] VITALS: BP 97/60
[2017-04-25 19:39] VITALS: BP 107/66
[2017-04-25] MEDS: DIPHENHYDRAMINE 50 MG/ML, 1ML IVPush SCH (21:00)
[2017-04-25] MEDS: QUETIAPINE 25MG TABLET PO SCH (21:40)
[2017-04-25] MEDS: CITALOPRAM 20 MG TABLET PO SCH (21:41)
[2017-04-25] MEDS: TRAZODONE 100MG TABLET PO SCH (21:43)
[2017-04-26] MEDS: METOPROLOL TARTRATE 25 MG TABLET PO SCH ×3 (01:30→16:53)
[2017-04-26 01:57] VITALS: BP 99/63
[2017-04-26 05:47] LABS: CHLORIDE 103 mmol/L (98-107)
[2017-04-26 05:53] LABS: ANION GAP 10 mmol/L (5-15); CALCIUM 8.4 mg/dL (8.5-10.1); CREATININE 1.02 mg/dL (0.7-1.3)
[2017-04-26 06:05] LABS: MEAN CORPUSCULAR HEMOGLOBIN 31.5 pg (27.5-34.5); MEAN CORPUSCULAR HGB CONC 33.9 g/dL (33.2-36.2); MEAN CORPUSCULAR VOLUME 92.9 fL (81-97); PLATELET COUNT 184 x10^3/uL (130-400); RED BLOOD COUNT 3.58 x10^6/uL (4.38-5.82); RED CELL DISTRIBUTION WIDTH 19.9 % (9.4-14.8)
[2017-04-26 06:43] LABS: MD YES
[2017-04-26 06:51] LABS: BAND#(MANUAL) 0.07 x10^3/uL; BANDS%(MANUAL) 2 % (0-7); BASOS#(MANUAL) 0.07 x10^3/uL (0-0.1); BASOS% (MANUAL) 2 % (0-1); EOS#(MANUAL) 0.11 x10^3/uL (0.0-0.4); EOS% (MANUAL) 3 % (1-7); LYMPH#(MANUAL) 1.19 x10^3/uL (1-3.4); LYMPHS% (MANUAL) 34 % (22-44); MONOS#(MANUAL) 0.81 x10^3/uL (0.3-2.7); MONOS% (MANUAL) 23 % (2-9); REACTIVE LYMPHS # (MANUAL) 0.07 x10^3/uL (0-0); REACTIVE LYMPHS % (MANUAL) 2 % (0-0); SEG#(MANUAL) 1.19 x10^3/uL (1.8-6.8); SEGS% (MANUAL) 34 % (42-75)
[2017-04-26 06:52] LABS: <PLATELET ESTIMATE> ADEQUATE; LARGE PLATELETS 1+
[2017-04-26 06:53] LABS: ANISOCYTOSIS 1+; POLYCHROMASIA 1+
[2017-04-26 06:57] VITALS: BP 101/66
[2017-04-26] MEDS: ACETAMINOPHEN 325 MG TABLET PO PRN ×2 (07:14→17:12)
[2017-04-26] MEDS: SENNA/DOCUSATE TABLET PO SCH (08:23)
[2017-04-26] MEDS: HEPARIN 5,000 UNITS/ML, 1ML SQ SCH ×4 (08:24→23:47)
[2017-04-26] MEDS: FOLIC ACID 1 MG TABLET PO SCH (08:24)
[2017-04-26] MEDS: THIAMINE 100MG TABLET PO SCH (08:25)
[2017-04-26 13:09] VITALS: BP 110/72
[2017-04-26] MEDS: OXYcodone IR 5MG TABLET PO PRN (18:37)
[2017-04-26 19:44] VITALS: BP 113/72
[2017-04-26] MEDS: QUETIAPINE 25MG TABLET PO SCH (21:00)
[2017-04-26] MEDS: DIPHENHYDRAMINE 50 MG/ML, 1ML IVPush SCH (21:00)
[2017-04-26] MEDS: CITALOPRAM 20 MG TABLET PO SCH (21:26)
[2017-04-26] MEDS: TRAZODONE 100MG TABLET PO SCH (21:27)
[2017-04-27] MEDS: METOPROLOL TARTRATE 25 MG TABLET PO SCH ×2 (01:30→08:29)
[2017-04-27 02:16] VITALS: BP 103/64
[2017-04-27] MEDS: OXYcodone IR 5MG TABLET PO PRN (03:53)
[2017-04-27 05:31] LABS: ANION GAP 7 mmol/L (5-15); CALCIUM 8.3 mg/dL (8.5-10.1); CHLORIDE 105 mmol/L (98-107); CREATININE 1.06 mg/dL (0.7-1.3)
[2017-04-27 05:33] LABS: BASOPHILS # (AUTO) 0.01 x10^3/uL (0-0.1); BASOPHILS % (AUTO) 0 % (0-1); EOSINOPHILS # (AUTO) 0.04 x10^3/uL (0-0.4); EOSINOPHILS % (AUTO) 1 % (1-7); LYMPHOCYTES # (AUTO) 1.07 x10^3/uL (1-3.4); LYMPHOCYTES % (AUTO) 28 % (22-44); MD NO; MEAN CORPUSCULAR HEMOGLOBIN 30.9 pg (27.5-34.5); MEAN CORPUSCULAR HGB CONC 33.3 g/dL (33.2-36.2); MEAN CORPUSCULAR VOLUME 92.9 fL (81-97); MEAN PLATELET VOLUME 7.4 fL (7.4-10.4); MONOCYTES # (AUTO) 0.78 x10^3/uL (0.2-0.8); MONOCYTES % (AUTO) 20 % (2-9); NEUTROPHILS # (AUTO) 1.99 x10^3/uL (1.8-6.8); NEUTROPHILS % (AUTO) 51 % (42-75); PLATELET COUNT 200 x10^3/uL (130-400); RED BLOOD COUNT 3.84 x10^6/uL (4.38-5.82); RED CELL DISTRIBUTION WIDTH 19.2 % (9.4-14.8)
[2017-04-27 07:35] VITALS: BP 109/69
[2017-04-27] MEDS: SENNA/DOCUSATE TABLET PO SCH (08:28)
[2017-04-27] MEDS: THIAMINE 100MG TABLET PO SCH (08:28)
[2017-04-27] MEDS: HEPARIN 5,000 UNITS/ML, 1ML SQ SCH (08:28)
[2017-04-27] MEDS: FOLIC ACID 1 MG TABLET PO SCH (08:28)
[2017-04-27] MEDS ORDERED: THIA100T6 PO (13:52)
[2017-04-27] MEDS ORDERED: FOLI-17 PO (13:52)
[2017-04-27] MEDS ORDERED: ESCI20TA10 PO (13:52)
[2017-04-27] MEDS ORDERED: TRAZ100T15 PO (13:52)
[2017-04-27] MEDS ORDERED: TRAZODONE 50MG TABLET PO SCH (21:00)
== END 2017-04-27 14:49 | disposition home or self-care (01) | DRG 896 ==
LOC: ED 18:05 → EDIP 19:40 → CCU 04-20 09:38 → 3NE 04-22 13:51
PROVIDERS: ADMIT Internal Medicine; ATTEND Internal Medicine
DX: F10.231 Alcohol dependence with withdrawal delirium (principal); G93.40 Encephalopathy, unspecified; D69.6 Thrombocytopenia, unspecified; E44.0 Moderate protein-calorie malnutrition; F33.9 Major depressive disorder, recurrent, unspecified; I11.0 Hypertensive heart disease with heart failure; I50.9 Heart failure, unspecified; N13.30 Unspecified hydronephrosis; W18.30XA Fall on same level, unspecified, initial encounter; D64.9 Anemia, unspecified; E87.6 Hypokalemia; F41.0 Panic disorder [episodic paroxysmal anxiety]; F41.1 Generalized anxiety disorder; I25.10 Atherosclerotic heart disease of native coronary artery without angina pectoris; J44.9 Chronic obstructive pulmonary disease, unspecified; K70.10 Alcoholic hepatitis without ascites; K76.0 Fatty (change of) liver, not elsewhere classified; Z79.4 Long term (current) use of insulin; Y93.89 Activity, other specified; Y92.89 Other specified places as the place of occurrence of the external cause; Y99.8 Other external cause status; Z68.23 Body mass index [BMI] 23.0-23.9, adult
CPT/HCPCS: 36415; 51702; 74177; 76770; 80048; 80053; 80061; 80076; 80307; 81001; 82040; 83036; 83690; 83735; 84439; 84443; 84484; 85025; 87081; 87086; 93005; 96361; 96365; 96366; 96368; 96375; 96376; J0610; J1644; J3360; J3475; J3480; J7042; Q9967; C9113; J1200; J2060; J2270; J7030; J7040; J7121

== ENCOUNTER 2017-05-24 08:27 | Emergency (ER) | payer MEDICAID ==
[~2017-05-24] VITALS: Ht 175.3 cm; Wt 81.0 kg
[~2017-05-24 08:27] MED LIST changes: +FOLI-17 PO; +THIA100T6 PO
[2017-05-24] MEDS ORDERED: THIAMINE 100MG TABLET PO ONE (09:00)
[2017-05-24] MEDS ORDERED: LORazepam 2 MG/ML, 1ML IVPush ONE ×2 (09:00→10:00)
[2017-05-24] MEDS ORDERED: ONDANSETRON ODT 4 MG PO ONE (09:00)
[2017-05-24] MEDS ORDERED: SODIUM CHLORIDE 0.9% 1,000ML IVBOLUS ONE (09:00)
[2017-05-24] MEDS ORDERED: THIAMINE 100MG TABLET ONE (09:03)
[2017-05-24] MEDS ORDERED: ONDANSETRON ODT 4 MG ONE (09:04)
[2017-05-24] MEDS ORDERED: LORazepam 2 MG/ML, 1ML ONE ×2 (09:06→10:04)
[2017-05-24 09:21] LABS: BASOPHILS # (AUTO) 0.02 x10^3/uL (0-0.1); BASOPHILS % (AUTO) 0 % (0-1); EOSINOPHILS % (AUTO) 0 % (1-7); LYMPHOCYTES # (AUTO) 1.08 x10^3/uL (1-3.4); LYMPHOCYTES % (AUTO) 14 % (22-44); MD NO; MEAN CORPUSCULAR HEMOGLOBIN 30.6 pg (27.5-34.5); MEAN CORPUSCULAR HGB CONC 33.4 g/dL (33.2-36.2); MEAN CORPUSCULAR VOLUME 91.8 fL (81-97); MEAN PLATELET VOLUME 6.6 fL (7.4-10.4); MONOCYTES # (AUTO) 0.25 x10^3/uL (0.2-0.8); MONOCYTES % (AUTO) 3 % (2-9); NEUTROPHILS # (AUTO) 6.39 x10^3/uL (1.8-6.8); NEUTROPHILS % (AUTO) 82 % (42-75); PLATELET COUNT 230 x10^3/uL (130-400); RED BLOOD COUNT 5.66 x10^6/uL (4.38-5.82); RED CELL DISTRIBUTION WIDTH 17.3 % (9.4-14.8)
[2017-05-24 09:31] LABS: ALANINE AMINOTRANSFERASE 85 U/L (12-78); ALBUMIN 4.5 g/dL (3.4-5.0); ANION GAP 19 mmol/L (5-15); CALCIUM 8.4 mg/dL (8.5-10.1); CHLORIDE 98 mmol/L (98-107); CREATININE 1.16 mg/dL (0.7-1.3)
[2017-05-24 09:34] LABS: ALKALINE PHOSPHATASE 109 U/L (45-117); BILIRUBIN,TOTAL 0.6 mg/dL (0.2-1.0); TOTAL PROTEIN 9.4 g/dL (6.4-8.2)
[2017-05-24 11:18] VITALS: BP 148/95
== END 2017-05-24 12:07 | disposition home or self-care (01) ==
LOC: ED 09:45
DX: F10.220 Alcohol dependence with intoxication, uncomplicated (principal); I10 Essential (primary) hypertension
CPT/HCPCS: 36415; 80053; 83690; 85025; 96361; 96374; 96376; 99284; J2060; J7030; Q0162

== ENCOUNTER 2017-08-21 17:55 | Emergency (ER) | payer MEDICAID ==
[~2017-08-21] VITALS: Ht 175.3 cm; Wt 82.0 kg
[~2017-08-21 17:55] MED LIST changes: +AMOX1TAB61 PO
[2017-08-21] MEDS ORDERED: ONDANSETRON 2MG/ML, 2ML ONE (18:46)
[2017-08-21 18:59] LABS: BASOPHILS # (AUTO) 0.02 x10^3/uL (0-0.1); BASOPHILS % (AUTO) 0 % (0-1); EOSINOPHILS % (AUTO) 0 % (1-7); LYMPHOCYTES # (AUTO) 1.22 x10^3/uL (1-3.4); LYMPHOCYTES % (AUTO) 10 % (22-44); MD NO; MEAN CORPUSCULAR HEMOGLOBIN 31.1 pg (27.5-34.5); MEAN CORPUSCULAR HGB CONC 34.4 g/dL (33.2-36.2); MEAN CORPUSCULAR VOLUME 90.6 fL (81-97); MEAN PLATELET VOLUME 5.8 fL (7.4-10.4); MONOCYTES # (AUTO) 0.43 x10^3/uL (0.2-0.8); MONOCYTES % (AUTO) 4 % (2-9); NEUTROPHILS # (AUTO) 10.51 x10^3/uL (1.8-6.8); NEUTROPHILS % (AUTO) 86 % (42-75); PLATELET COUNT 304 x10^3/uL (130-400)
[2017-08-21] MEDS ORDERED: ONDANSETRON 2MG/ML, 2ML IVPush ONE (19:00)
[2017-08-21] MEDS ORDERED: SODIUM CHLORIDE 0.9% 1,000ML IVBOLUS ONE (19:00)
[2017-08-21 19:10] LABS: ALANINE AMINOTRANSFERASE 36 U/L (12-78); ALBUMIN 3.9 g/dL (3.4-5.0); ANION GAP 13 mmol/L (5-15); CALCIUM 8.3 mg/dL (8.5-10.1); CHLORIDE 102 mmol/L (98-107)
[2017-08-21 19:12] LABS: ALKALINE PHOSPHATASE 78 U/L (45-117); BILIRUBIN,TOTAL 0.4 mg/dL (0.2-1.0); TOTAL PROTEIN 8.2 g/dL (6.4-8.2)
[2017-08-21] MEDS ORDERED: LORazepam 2 MG/ML, 1ML ONE (19:15)
[2017-08-21 19:17] VITALS: BP 152/95
[2017-08-21] MEDS ORDERED: LORazepam 2 MG/ML, 1ML IVPush ONE (19:30)
== END 2017-08-21 19:57 | disposition home or self-care (01) ==
LOC: ED 19:12
DX: F10.120 Alcohol abuse with intoxication, uncomplicated (principal); K29.20 Alcoholic gastritis without bleeding; F41.1 Generalized anxiety disorder; F32.9 Major depressive disorder, single episode, unspecified
CPT/HCPCS: 36415; 80053; 80307; 83690; 85025; 93005; 96361; 96374; 96375; 99285; J2060; J2405; J7030

== ENCOUNTER 2017-09-01 14:43 | Emergency (ER) | payer MEDICAID ==
[~2017-09-01] VITALS: Ht 175.3 cm; Wt 82.0 kg
[2017-09-01] MEDS ORDERED: CHLORDIAZEPOXIDE 25 MG CAPSULE ONE ×2 (15:11)
[2017-09-01] MEDS ORDERED: CHLORDIAZEPOXIDE 25 MG CAPSULE PO ONE (15:30)
[2017-09-01] MEDS ORDERED: SODIUM CHLORIDE FLUSH 10ML SYR IVF ONE (15:30)
[2017-09-01] MEDS ORDERED: SODIUM CHLORIDE 0.9% 1,000ML IVBOLUS ONE (15:30)
[2017-09-01 15:37] LABS: ALBUMIN 3.4 g/dL (3.4-5.0); ANION GAP 14 mmol/L (5-15); CALCIUM 7.3 mg/dL (8.5-10.1); CHLORIDE 100 mmol/L (98-107)
[2017-09-01 15:41] LABS: INTERNATIONAL NORMALIZED RATIO 1.01 (0.93-1.1); PROTHROMBIN TIME 10.5 Seconds (9.6-11.5)
[2017-09-01 15:43] LABS: ALANINE AMINOTRANSFERASE 105 U/L (12-78); ALKALINE PHOSPHATASE 92 U/L (45-117); CREATININE 1.01 mg/dL (0.7-1.3); TOTAL PROTEIN 7.4 g/dL (6.4-8.2)
[2017-09-01 16:04] LABS: MEAN CORPUSCULAR HEMOGLOBIN 31.5 pg (27.5-34.5); MEAN CORPUSCULAR HGB CONC 34.4 g/dL (33.2-36.2); MEAN CORPUSCULAR VOLUME 91.8 fL (81-97); MEAN PLATELET VOLUME 6.9 fL (7.4-10.4); PLATELET COUNT 93 x10^3/uL (130-400); RED BLOOD COUNT 4.79 x10^6/uL (4.38-5.82); RED CELL DISTRIBUTION WIDTH 15.4 % (9.4-14.8)
[2017-09-01 16:08] LABS: MD SCAN
[2017-09-01 16:09] LABS: BASOPHILS % (AUTO) 0 % (0-1); EOSINOPHILS # (AUTO) 0.01 x10^3/uL (0-0.4); EOSINOPHILS % (AUTO) 0 % (1-7); LYMPHOCYTES # (AUTO) 0.37 x10^3/uL (1-3.4); LYMPHOCYTES % (AUTO) 3 % (22-44); MONOCYTES # (AUTO) 0.62 x10^3/uL (0.2-0.8); MONOCYTES % (AUTO) 5 % (2-9); NEUTROPHILS # (AUTO) 12.01 x10^3/uL (1.8-6.8); NEUTROPHILS % (AUTO) 92 % (42-75)
[2017-09-01 17:12] VITALS: BP 141/80
== END 2017-09-01 17:14 | disposition home or self-care (01) ==
LOC: ED 15:52
DX: F10.220 Alcohol dependence with intoxication, uncomplicated (principal); R79.1 Abnormal coagulation profile; Z79.899 Other long term (current) drug therapy
CPT/HCPCS: 36415; 80053; 80307; 83690; 85025; 85610; 85730; 99284; J7030